=== PATIENT | male | born 1930 | race Caucasian/White ===

== ENCOUNTER 2017-03-02 09:17 | Emergency (ER) | payer MEDICARE ==
[2017-03-02 09:32] VITALS: BP 184/79
--- NOTE | 2017-03-02 10:27 | UC ---
Lower Extremity/Ankle HPI - HPI Summary HPI Summary: While getting ready for bed last night pt noticed a lot of blood coming from R great toe. Asked neighbor for help, who wasn't sure if the blood was coming from underneath the toe or from the toenail. Pt is on warfarin. Also had R 2nd toenail fall off a few days ago, pt thinks it looks pretty good. No new pain, redness, or streaking up the leg. Pt has hx of neuropathy and PVD. - History of Current Complaint Chief Complaint: UCLaceration Stated Complaint: LEFT FOOT BIG TOE BLEEDING Time Seen by Provider: 03/02/17 10:00 Hx Obtained From: Patient Onset/Duration: Sudden Onset, Lasting Hours Severity Initially: Mild Severity Currently: Mild Aggravating Factor(s): Nothing Alleviating Factor(s): Rest Able to Bear Weight: Yes - Allergies/Home Medications Allergies/Adverse Reactions: Allergies Allergy/AdvReac Type Severity Reaction Status Date / Time Penicillins Allergy Itching, Verified 03/02/17 09:30 Joint Swelling Home Medications: Home Medications Multiple Vitamins W/ Minerals [Preservision Areds 2 + Mu] 2 cap PO DAILY [History Confirmed 03/02/17] PMH/Surg Hx/FS Hx/Imm Hx Cardiovascular History: Hypertension, Bleeding Disorders - warfarin Other Cardiovascular History: PVD Respiratory History: COPD, Asthma Other Neurological History: peripheral neuropathy - Surgical History Surgical History: Yes Surgery Procedure, Year, and Place: OPEN HEART VALVE SURGERY. Abd surgery r/t bleeding polyp - Family History Known Family History: Positive: Hypertension, Respiratory Disease - Social History Occupation: Retired Lives: Alone Alcohol Use: Daily Alcohol Amount: 2 -3 cocktails Substance Use Type: None Smoking Status (MU): Former Smoker Review of Systems Constitutional: Negative Skin: Other - bleeding lesion R great toe Eyes: Negative ENT: Negative Respiratory: Negative Cardiovascular: Negative Gastrointestinal: Negative Genitourinary: Negative Motor: Negative Neurovascular: Negative Musculoskeletal: Negative Neurological: Negative Psychological: Negative All Other Systems Reviewed And Are Negative: Yes Physical Exam Triage Information Reviewed: Yes Appearance: Well-Appearing, No Pain Distress, Well-Nourished Vital Signs: Initial Vital Signs Temp 98.4 F 03/02/17 09:24 Pulse 62 03/02/17 09:24 Resp 18 03/02/17 09:24 BP 184/79 03/02/17 09:24 Pulse Ox 100 03/02/17 09:24 Vital Signs Reviewed: Yes Eye Exam: Normal Eyes: Positive: Conjunctiva Clear ENT: Positive: Pharynx normal, TMs normal - R, Other: - L cerumen impaction Neck exam: Normal Neck: Positive: Supple, Nontender, No Lymphadenopathy Respiratory Exam: Normal Respiratory: Positive: Chest non-tender, Lungs clear, Normal breath sounds, No respiratory distress, No accessory muscle use Cardiovascular Exam: Normal Cardiovascular: Positive: RRR, No Murmur Musculoskeletal Exam: Normal Musculoskeletal: Positive: ROM Intact Neurological: Positive: Alert Psychological Exam: Normal Psychological: Positive: Normal Response To Family Skin Exam: Other - R 2nd toenail avulsion, no active bleeding or erythema. Tip of R great toe hemorrhagic bulla approx 1.5cm x 1cm, open area with evidence of previous bleeding. No streaking on foot or leg, mild nonpitting edema or dorsum of R foot Lower Extremity Course/Dx - Differential Dx/Diagnosis Provider Diagnoses: peripheral neuropathy. bleeding bulla on R great toe. nontraumatic nail avulsion R 2nd toe Discharge - Discharge Plan Condition: Stable Disposition: HOME Patient Education Materials: Peripheral Neuropathy (ED), Foot Care for People with Diabetes (ED) Referrals: Carlos Canchola MD [Primary Care Provider] - Additional Instructions: Even though you don't have diabetes, I want to you take care of your feet as though you do because of your neuropathy. You should look at your feet with a mirror every day and see your doctor if you have new open areas or if you see increasing redness. The open areas should heal over time. It is possible that the split blood blister on your big toe may open and bleed again, but it is not dangerous to you if it does (and it WILL stop on its own). Simply apply constant pressure for 20-30 minutes if it starts bleeding again. You can do this by putting a clean towel on the floor and pushing your foot into it while you stand. Remove the dressings we put on in 1-2 days. I do not recommend you replace them. I do not see any signs of infection today. Because of the swelling in your foot , it would be best if you could elevate the foot above the level of the heart a few hours per day.
== END 2017-03-02 10:41 | disposition home or self-care (01) ==
LOC: UCCORT 09:17
DX: S91.204A Unspecified open wound of right lesser toe(s) with damage to nail, initial encounter (principal); G62.9 Polyneuropathy, unspecified; J44.9 Chronic obstructive pulmonary disease, unspecified; Z88.0 Allergy status to penicillin; Z79.02 Long term (current) use of antithrombotics/antiplatelets; Z87.891 Personal history of nicotine dependence; X58.XXXA Exposure to other specified factors, initial encounter; Y92.9 Unspecified place or not applicable
CPT/HCPCS: 99213; G0463